=== PATIENT | female | born 1950 | race Caucasian/White ===

== ENCOUNTER 2019-12-19 08:50 | Emergency (ER) | payer MEDICARE, OTHER ==
[~2019-12-19] VITALS: Ht 162.6 cm; Wt 57.7 kg
--- NOTE | 2019-12-19 09:02 | NUR ---
MOJGAN NOWAK, PER EMS PT DRIVING TOWARD ONCOMING TRAFFICE, PULLED OVER BY [employer]. EMS CALLED D/T PT WITH HYPERVENTILATION RR 60S, PT WITH C/O PALPITATIONS, "SOMETHING IS NOT RIGHT" PER EMS PT GIVEN VERBAL CUES TO ATTEMPT TO CALM, UNSUCCESSFUL, PT THEN GIVEN 2MG VERSED CANDY DIPPER HAND, WITH GOOD RESULT. PT STATES SHE HAS NOT SLEPT IN A FEW DAYS AND THINKS THAT IS THE PROBLEM. PER PT WITH INCREASED ANXIETY/INSOMNIA D/T DEBATE AND POLITICAL ISSUES. PT NITA SI/HI. PT TO ALL MONITORS AT THIS TIME, AWAITING ERP EVAL Addendum: 12/19/19 at 0912 by [facility] DOES DENY DRUG USE, ADMITS TO DRINKING DAILY 3 BEERS. NO ETOH USE THIS AM PER HER REPORT
[2019-12-19] MEDS ORDERED: PLEASE ENTER ALLERGIES MC SCH (09:30)
[2019-12-19] MEDS ORDERED: LORazepam 2 MG/ML, 1ML ONE (09:44)
--- NOTE | 2019-12-19 09:51 | NUR ---
REPORT TO CARLTON BONILLA
[2019-12-19 10:00] LABS: ALANINE AMINOTRANSFERASE 22 U/L (12-78); ALBUMIN 4.1 g/dL (3.4-5.0); ANION GAP 8 mmol/L (5-15); CALCIUM 9.2 mg/dL (8.5-10.1); CHLORIDE 111 mmol/L (98-107); CREATININE 1.04 mg/dL (0.55-1.02)
[2019-12-19] MEDS ORDERED: LORazepam 2 MG/ML, 1ML IVPush ONE (10:00)
[2019-12-19 10:03] LABS: BASOPHILS % (AUTO) 1 % (0-1); EOSINOPHILS % (AUTO) 1 % (1-7); LYMPHOCYTES % (AUTO) 27 % (22-44); MEAN CORPUSCULAR HGB CONC 33.1 g/dL (32.4-35.8); MEAN PLATELET VOLUME 9.7 fL (7.4-10.4); MONOCYTES % (AUTO) 11 % (2-9); NEUTROPHILS % (AUTO) 61 % (42-75); PLATELET COUNT 292 x10^3/uL (130-400); RED BLOOD COUNT 5.22 x10^6/uL (3.82-5.3); RED CELL DISTRIBUTION WIDTH 12.5 % (9.6-15.2)
[2019-12-19 10:04] LABS: ALKALINE PHOSPHATASE 96 U/L (45-117); TOTAL PROTEIN 7.8 g/dL (6.4-8.2); TROPONIN I 0.025 ng/mL (0.000-0.045)
[2019-12-19 10:42] LABS: MD SCAN
[2019-12-19 10:56] VITALS: BP 127/90
== END 2019-12-19 11:52 | disposition home or self-care (01) ==
LOC: ED 09:26
DX: F51.01 Primary insomnia (principal); F41.1 Generalized anxiety disorder; R00.2 Palpitations; R00.0 Tachycardia, unspecified; R07.9 Chest pain, unspecified
CPT/HCPCS: 36415; 71045; 80053; 84443; 84484; 85025; 93005; 96374; 99285; J2060

== ENCOUNTER 2020-05-07 01:16 | Emergency (ER) | payer MEDICARE, OTHER ==
[~2020-05-07] VITALS: Ht 162.6 cm; Wt 58.9 kg
[2020-05-07] MEDS ORDERED: KETOROLAC 30 MG/1 ML IVPush ONE (01:30)
[2020-05-07] MEDS ORDERED: SODIUM CHLORIDE FLUSH 10ML SYR IVF ONE (01:30)
[2020-05-07] MEDS ORDERED: MORPHINE SULFATE 4 MG/ML, 1ML IVPush PRN (01:30)
[2020-05-07] MEDS ORDERED: ONDANSETRON 2MG/ML, 2ML IVPush ONE (01:30)
[2020-05-07] MEDS ORDERED: ONDANSETRON 2MG/ML, 2ML ONE (01:40)
[2020-05-07] MEDS ORDERED: KETOROLAC 30 MG/1 ML ONE (01:40)
[2020-05-07] MEDS ORDERED: MORPHINE SULFATE 4 MG/ML, 1ML ONE (01:41)
[2020-05-07 01:46] LABS: MICROSCOPIC INDICATED
[2020-05-07 01:48] LABS: BASOPHILS % (AUTO) 1 % (0-1); EOSINOPHILS % (AUTO) 0 % (1-7); LYMPHOCYTES % (AUTO) 13 % (22-44); MD NO; MEAN CORPUSCULAR HEMOGLOBIN 30.8 pg (27.0-34.8); MEAN CORPUSCULAR HGB CONC 33.7 g/dL (32.4-35.8); MONOCYTES % (AUTO) 5 % (2-9); NEUTROPHILS % (AUTO) 81 % (42-75); PLATELET COUNT 281 x10^3/uL (130-400); RED BLOOD COUNT 4.76 x10^6/uL (3.82-5.3); RED CELL DISTRIBUTION WIDTH 12.4 % (9.6-15.2)
--- NOTE | 2020-05-07 01:51 | NUR ---
pt resting in bed with spouce at pt side, pt a/o x 4 with unlabored equalo breathing. pt on monitor with vss. pt medicated per may.
[2020-05-07 01:55] LABS: ALANINE AMINOTRANSFERASE 23 U/L (12-78); ALBUMIN 4.2 g/dL (3.4-5.0); ANION GAP 10 mmol/L (5-15); CALCIUM 9.2 mg/dL (8.5-10.1); CHLORIDE 106 mmol/L (98-107); CREATININE 1.25 mg/dL (0.55-1.02)
[2020-05-07 01:57] LABS: ALKALINE PHOSPHATASE 88 U/L (45-117); BILIRUBIN,TOTAL 0.6 mg/dL (0.2-1.0); TOTAL PROTEIN 7.5 g/dL (6.4-8.2)
[2020-05-07 03:19] LABS: MICROSCOPIC INDICATED
[2020-05-07 04:11] VITALS: BP 134/72
== END 2020-05-07 04:14 | disposition home or self-care (01) ==
LOC: ED 01:37
DX: N13.2 Hydronephrosis with renal and ureteral calculous obstruction (principal); R11.2 Nausea with vomiting, unspecified; F17.290 Nicotine dependence, other tobacco product, uncomplicated
CPT/HCPCS: 36415; 74176; 80053; 81001; 83690; 85025; 87086; 96374; 96375; 99284; 99406; J1885; J2270; J2405